=== PATIENT | male | born 1930 | race Caucasian/White ===

== ENCOUNTER → 2016-05-09 | Outpatient (CLI) | payer OTHER ==
[~2016-05-09] MED LIST: ACET-1138 PO; ASPEC81 PO; CLB200 PO; FINA5TAB PO; GLUC10007 PO; HYLANDS LEG CRAMP PO; MISCCAP80 PO; MULT-190 PO; MULTTAB5 PO; OMEG10007 PO; OMEP20TA PO; ONDA8TAB6 PO; OXYSR10 PO; PROP20TA67 PO; RSTOPS OP; RXC5 PO; SIMV80TA2 PO; TAMS0.4C59 PO; VALS40TA2 PO; ZOLP5TAB PO
[2016-05-09 10:25] LABS: BASO % 0.4 %; BASO ABS # 0.03 K/uL (0-0.2); COMPLETE YES; EOS % 3.9 %; HEMATOCRIT 41.3 % (42-52); IG% 0.1 %; LYMPH % 19.2 %; LYMPH ABS # 1.28 K/uL (1.2-3.4); MEAN CELL VOLUME 87.3 fL (80-100); MEAN CORPUSCULAR HGB CONC 34.4 g/dl (32-36); MEAN PLATELET VOLUME 11.3 fL (7.4-10.4); MONO % 8.8 %; NEUT % 67.6 %; PLATELET COUNT 197 K/uL (130-400); RED BLOOD COUNT 4.73 M/uL (4.7-6.1); WHITE BLOOD COUNT 6.68 K/uL (4.8-10.8)
[2016-05-09 10:33] LABS: ALT/SGPT 21 U/L (12-78); AMYLASE 42 U/L (25-115); BLOOD UREA NITROGEN 18 mg/dl (7-18); BUN/CREATININE RATIO 14.1 (10-20); CALCIUM 9.3 mg/dl (8.5-10.1); CARBON DIOXIDE 24 mmol/L (21-32); CHLORIDE 108 mmol/L (98-107); GLUCOSE 154 mg/dl (70-99); POTASSIUM 3.9 mmol/L (3.5-5.1); SODIUM 142 mmol/L (136-145)
[2016-05-09 10:35] LABS: ALB/GLOB RATIO 1.1 (0.9-2); ALKALINE PHOSPHATASE 84 U/L (45-117); AST/SGOT 14 U/L (15-37)
== END | disposition home or self-care (01) ==
LOC: C.LABSPEC 10:03
PROVIDERS: ATTEND Internal Medicine Critical Care Medicine
DX: R10.9 Unspecified abdominal pain (principal); D64.9 Anemia, unspecified

== ENCOUNTER → 2016-05-10 | Outpatient (CLI) | payer OTHER | END | disposition home or self-care (01) | LOC: C.LABVPSUW 08:33 | PROVIDERS: ATTEND Internal Medicine Critical Care Medicine | DX: R10.9 Unspecified abdominal pain (principal) ==

== ENCOUNTER → 2016-12-15 | Outpatient (CLI) | payer OTHER ==
[~2016-12-15] MED LIST changes: +ATROPINE SULFATE 0.1 MG/ML 5ML SYR ONE; +DOBUTamine HCL 12.5 MG/ML 20 ML VIAL ONE; +METOPROLOL TARTRATE 1 MG/ML VIAL ONE; -ONDA8TAB6 PO
--- NOTE | 2016-12-15 10:56 | DIAGNOSTIC IMAGING REPORT ---
CHEST 2 VIEWS ROUTINE CLINICAL HISTORY: CHEST PAIN pain COMPARISON STUDY: 08/05/2015 FINDINGS: The bones soft tissues and hemidiaphragms are normal. The cardiomediastinal silhouette is normal. The lungs are clear. The pulmonary vasculature is normal. IMPRESSION: Negative chest. The above report was generated using voice recognition software. It may contain grammatical, syntax or spelling errors. Electronically signed by: Tyson Escalona M.D. 12/15/2016 10:55 AM Dictated Date/Time: 12/15/2016 10:54 AM
--- NOTE | 2016-12-15 16:27 | DOBUTAMINE ECHO ---
*NOTICE TO RECEIVING [employer] This information is strictly Confidential and protected under [place] law. [place] law prohibits you from making any further disclosure of this information unless further disclosure is expressly permitted by the written consent of the person to whom it pertains or is authorized by law. A general authorization for the release of medical or other information is not sufficient for this purpose. Hospital accepts no responsibility if the information is made available to any other person, INCLUDING THE PATIENT. Interpretation Summary * Name: RADHA JEONG Study Date: 12/15/2016 11:36 AM BP: 133/97 mmHg * HR: 48 * : 1930 (M/d/yyyy) Gender: Male Height: 70 in * Age: 86 yrs Ethnicity: CA Weight: 185 lb * Ordering Physician: Bing Collins * Referring Physician: KIRK * Performed By: Joel Rivas RCS * * Reason For Study: ASCAD, Angina * BSA: 2.0 m2 * -- Conclusions -- * The left ventricle is borderline dilated. * Left ventricular systolic function is normal. * Grade I diastolic dysfunction, (abnormal relaxation pattern). * Mild to moderate aortic regurgitation. * Right ventricular systolic pressure is normal. * Borderline aortic root dilatation. * Normal dobutamine echocardiogram without evidence of inducible ischemia. Procedure Details * DOBUTAMINE ECHO, CPT#94632 * ECHO COLOR FLOW, CPT #[id number] * ECHO DOPPLER, CPT #[id number] Left Ventricular Findings with Stress * Normal dobutamine echocardiogram without evidence of inducible ischemia. Left Ventricle * The left ventricle is borderline dilated. * There is normal left ventricular wall thickness. * Ejection Fraction = 50-55%. * Left ventricular systolic function is normal. * Grade I diastolic dysfunction, (abnormal relaxation pattern). * The left ventricular wall motion is normal. Right Ventricle * The right ventricle is normal in size and function. Atria * The left atrial size is normal. * Right atrial size is normal. Mitral Valve * The mitral valve anatomy is normal. * Significant mitral regurgitation is absent. Tricuspid Valve * The tricuspid valve is not well visualized, but is grossly normal. * There is trace tricuspid regurgitation. * Right ventricular systolic pressure is normal. Aortic Valve * The aortic valve is trileaflet. * No hemodynamically significant valvular aortic stenosis. * Mild to moderate aortic regurgitation. Great Vessels * Borderline aortic root dilatation. Pericardium * There is no pericardial effusion. Stress Parameters * The baseline electrocardiogram was abnormal. It displayed right bundle branch block. * Stress ECG: No ST changes. No arrhythmias. * The stress portion of this study was personally supervised by the undersigned interpreting physician. * Rest heart rate was '48' BPM. * Rest blood pressure was '133/97' * Maximum heart rate achieved was 122 bpm. * Maximum heart rate was 89 % of maximum age-predicted heart rate. * Maximum blood pressure was '197/91' * Maximum Dobutamine infusion rate was '50' mcg/kg/min. * A total of 1 mg of intravenous Atropine was used to supplement Dobutamine for heart rate response. * Dobutamine infusion was terminated due to achieving target heart rate * The patient did not exhibit any symptoms during drug infusion. Left Ventricular Findings with Stress * No significant EKG changes with dobutamine Normal augmentation without inducible wall motion abnormalities at peak dobutamine infusion. No symptoms reported MMode 2D Measurements and Calculations IVSd 0.91 cm IVSs 1.2 cm LVIDd 5.1 cm LVIDs 3.7 cm LVPWd 10 cm LVPWs 1.4 cm IVS/LVPW 0.91 FS 26.6 % EDV(Teich) 121.2 ml ESV(Teich) 58.5 ml EF(Teich) 51.7 % EDV(cubed) 129.1 ml ESV(cubed) 51.1 ml EF(cubed) 60.4 % % IVS thick 35.2 % % LVPW thick 36.0 % LV mass(C)d 173.3 grams LV mass(C)dI 85.8 grams/m\S\2 LV mass(C)s 165.2 grams LV mass(C)sI 81.8 grams/m\S\2 CO(Teich) 2.8 l/min CI(Teich) 1.4 l/min/m\S\2 SV(Teich) 62.7 ml SI(Teich) 31.1 ml/m\S\2 CO(cubed) 3.4 l/min CI(cubed) 1.7 l/min/m\S\2 SV(cubed) 78.0 ml SI(cubed) 38.6 ml/m\S\2 Ao root diam 4.0 cm Ao root area 12.8 cm\S\2 ACS 1.8 cm LA dimension 3.6 cm asc Aorta Diam 4.0 cm LA/Ao 0.90 LVAd ap4 29.6 cm\S\2 LVLd ap4 8.2 cm EDV(MOD-sp4) 88.0 ml LVAs ap4 19.2 cm\S\2 LVLs ap4 7.1 cm ESV(MOD-sp4) 43.0 ml EF(MOD-sp4) 51.1 % LVAd ap2 29.9 cm\S\2 LVLd ap2 8.7 cm EDV(MOD-sp2) 88.0 ml LVAs ap2 16.2 cm\S\2 LVLs ap2 6.8 cm ESV(MOD-sp2) 33.0 ml EF(MOD-sp2) 62.5 % CO(MOD-sp4) 2.0 l/min CI(MOD-sp4) 0.98 l/min/m\S\2 SV(MOD-sp4) 45.0 ml SI(MOD-sp4) 22.3 ml/m\S\2 CO(MOD-sp2) 2.4 l/min CI(MOD-sp2) 1.2 l/min/m\S\2 SV(MOD-sp2) 55.0 ml SI(MOD-sp2) 27.2 ml/m\S\2 Doppler Measurements and Calculations MV E max david 36.5 cm/sec MV A max david 88.8 cm/sec MV E/A 0.41 Ao V2 max 110.2 cm/sec Ao max PG 4.9 mmHg Ao max PG (full) 3.4 mmHg AI max david 420.8 cm/sec AI max PG 70.8 mmHg AI dec slope 118.2 cm/sec\S\2 AI P1/2t 1043.0 msec LV V1 max PG 1.5 mmHg LV V1 max 60.9 cm/sec PA V2 max 103.7 cm/sec PA max PG 4.3 mmHg PI max david 212.8 cm/sec PI max PG 18.1 mmHg PI dec slope 142.8 cm/sec\S\2 PI P1/2t 436.6 msec TR max david 256.0 cm/sec
== END | disposition home or self-care (01) ==
LOC: C.CPL 10:27
PROVIDERS: ATTEND Internal Medicine Critical Care Medicine
DX: R07.9 Chest pain, unspecified (principal); I25.119 Atherosclerotic heart disease of native coronary artery with unspecified angina pectoris

== ENCOUNTER → 2017-12-07 | Outpatient (CLI) | payer OTHER ==
[~2017-12-07] MED LIST changes: -ASPEC81 PO; +ASPI-320 PO; -ATROPINE SULFATE 0.1 MG/ML 5ML SYR ONE; -DOBUTamine HCL 12.5 MG/ML 20 ML VIAL ONE; -METOPROLOL TARTRATE 1 MG/ML VIAL ONE
--- NOTE | 2017-12-07 12:10 | DIAGNOSTIC IMAGING REPORT ---
CHEST 2 VIEWS ROUTINE CLINICAL HISTORY: COUGH, NIGHT SWEATS COMPARISON STUDY: 12/15/2016 FINDINGS: The cardiac and mediastinal contours are normal. There is no evidence of focal pulmonary consolidation. There is no evidence of failure. No pleural effusions are visualized.[ Slight prominence of the basilar markings likely represents atelectasis/scarring. IMPRESSION: No active disease in the chest. Electronically signed by: Tucker Soto M.D. 12/07/2017 12:09 PM Dictated Date/Time: 12/07/2017 12:08 PM
== END | disposition home or self-care (01) ==
LOC: C.RAD 11:33
PROVIDERS: ATTEND Internal Medicine Critical Care Medicine
DX: R05 Cough (principal); R61 Generalized hyperhidrosis

== ENCOUNTER 2017-12-30 03:15 | Emergency (ER) | payer OTHER ==
[~2017-12-30] VITALS: Ht 177.8 cm; Wt 88.4 kg
[2017-12-30 03:15] VITALS: TEMP 36.5; Ht 177.8 cm; Wt 88.4 kg
[2017-12-30] MEDS ORDERED: ONDANSETRON INJ 2 MG/ML 2 ML VIAL ONE (03:42)
[2017-12-30 03:54] LABS: BASO % 0.5 %; BASO ABS # 0.03 K/uL (0-0.2); EOS % 5.7 %; EOS ABS # 0.33 K/uL (0-0.5); HEMATOCRIT 39.3 % (42-52); HEMOGLOBIN 13.1 g/dL (14.0-18.0); LYMPH % 36.3 %; LYMPH ABS # 2.12 K/uL (1.2-3.4); MEAN CELL VOLUME 90.8 fL (80-100); MEAN CORPUSCULAR HEMOGLOBIN 30.3 pg (25-34); MEAN CORPUSCULAR HGB CONC 33.3 g/dl (32-36); MEAN PLATELET VOLUME 11.4 fL (7.4-10.4); MONO % 11.8 %; MONO ABS # 0.69 K/uL (0.11-0.59); NEUT % 45.7 %; NEUT ABS # 2.67 K/uL (1.4-6.5); PLATELET COUNT 172 K/uL (130-400); RED CELL DISTRIBUTION WIDTH CV 13.7 % (11.5-14.5); RED CELL DISTRIBUTION WIDTH SD 45.3 fL (36.4-46.3); WHITE BLOOD COUNT 5.84 K/uL (4.8-10.8)
--- NOTE | 2017-12-30 04:00 | EMERGENCY ROOM VISIT NOTE ---
History Report prepared by Lesia: Chilo Pantoja Under the Supervision of: Dr. Yumi Jain D.O. First contact with patient: 03:20 Chief Complaint: DIZZY Stated Complaint: DIZZY Nursing Triage Summary: Pt arrived via [facility] from home where he lives with his . Per pt, he was reading in bed at midnight when he suddenly became dizzy with blurred vision. Pt states "I turned off the lights and went to bed, then at 0200 I woke up to go to the bathroom and was very unsteady." Pt reports he had dizziness, blurred vision, and was diaphoretic. EMS reports pt vomited on scene. Heart rate 46 for EMS. 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 Upon arrival pt CAOx4. Hard of hearing. 100cc yellow food particle emesis in emesis bag. Pt reporting severe nausea and dizziness. Denies CP or SOB. Sinus wing on monitor. History of Present Illness The patient is an 87 year old male who presents to the Emergency Room with complaints of sudden onset dizziness, lightheadedness, and nausea that began 3.5 hours prior to arrival. Per nursing staff the patient was sitting in bed reading a book when he suddenly became lightheaded and also noticed some " blurry vision." He went to sleep and then woke up again at 0200 to use the restroom. He was still dizzy when he woke up and had difficulty ambulating to the restroom. Upon EMS arrival the patient was diaphoretic and bradycardic. The patient did vomit after EMS arrived. The patient is still complaining of nausea at this time. He notes that he has a history of "silent CA" and denies any chest pain or shortness of breath at this time. He denies any diarrhea. 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 Source of History: patient Onset: 3.5 hours [employer] SAL[employer] REP Position: head Quality: other (Dizziness, lightheadedness) Timing: other (sudden onset 3.5 hours ago) Associated Symptoms: + nausea, + vomiting Review of Systems See HPI for pertinent positives & negatives. A total of 10 systems reviewed and were otherwise negative. Past Medical & Surgical Medical Problems: (1) Diverticulitis (2) Inguinal hernia with bowel obstruction (3) Right knee DJD Surgical Problems: (1) Hx of cataract surgery Family History No significant family history Social History Smoking Status: Never Smoker Drug Use: none Marital Status: Housing Status: lives with significant other Occupation Status: retired Current/Historical Medications Scheduled Aspirin (Aspirin Ec), 81 MG PO DAILY Celecoxib (CeleBREX), 200 MG PO DAILY Cyclosporine (Ophth) (Restasis), 1 DROPS OP BID Finasteride (Proscar), 5 MG PO QPM Fish Oil ([place]-3), 1,000 MG PO QAM Multiple Vitamins W/ Minerals (Centrum), 1 TAB PO QAM Ocuvite Preservision (Ocuvite Preservision), 1 TAB PO BID Omeprazole (Omeprazole), 20 MG PO BID Probiotic Product (Probiotic), 1 CAP PO QPM Propranolol (Inderal), 40 MG PO BID Simvastatin (Zocor), 80 MG PO HS Tamsulosin Hcl (Flomax), 0.4 MG PO DAILY Valsartan (Diovan), 40 MG PO QPM Allergies Coded Allergies: No Known Allergies (Unverified , 11/25/15) Physical Exam Vital Signs Date Time Temp Pulse Resp B/P (MAP) Pulse Ox O2 Delivery O2 Flow Rate FiO2 12/30/17 06:33 54 19 141/77 94 Room Air 12/30/17 05:35 50 15 137/63 95 Nasal Cannula 2.0 12/30/17 05:35 133/63 12/30/17 05:30 47 13 96 Nasal Cannula 2.0 12/30/17 05:00 45 14 96 Nasal Cannula 2.0 12/30/17 04:30 45 14 96 Nasal Cannula 2.0 12/30/17 04:05 45 14 144/71 97 Nasal Cannula 2.0 12/30/17 04:04 144/71 12/30/17 03:39 Nasal Cannula 2.0 12/30/17 03:39 97 Nasal Cannula 2.0 12/30/17 03:35 88 Room Air 12/30/17 03:30 49 14 95 12/30/17 03:29 46 12/30/17 03:15 36.5 46 13 155/81 93 Room Air Physical Exam HEENT: Head - normocephalic and atraumatic. Pupils are equal, round, and reactive to light. Extraocular Lateral nystagmus on exam. Ears - bilaterally patent canals with noninjected tympanic membranes and no evidence of hemotympanum. Nose - moist nasal mucosa without discharge. Mouth - moist buccal mucosa. Oropharynx is nonerythematous and there is no tonsillar exudate or edema noted. Neck: Supple; no JVD, nuchal rigidity, cervical lymphadenopathy, or auscultated bruits. Heart: Regular rate and rhythm. There is a normal S1 and S2 with no murmurs, clicks, or gallops appreciated. Lungs: Clear to auscultation bilaterally with no wheezes, rales, or rhonchi. Abdomen: Soft, completely nontender, nondistended, with good bowel sounds. There are no palpable pulsatile masses or hepatosplenomegaly. There is no guarding, rigidity, or rebound noted. Extremities: No evidence of cyanosis, clubbing, or edema. There are easily palpable peripheral pulses. Neuro:The patient is awake and alert, oriented to day, time, and place. Muscle strength is 5/5 in all 4 extremities. 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 There are no cerebellar signs. Medical Decision & Procedures ER Provider Diagnostic Interpretation: Radiology results as stated below per my review and the radiologist's interpretation: HEAD WITHOUT CONTRAST (CT) CLINICAL HISTORY: 87 years-old Male with severe dizziness and nausea. Acute severe dizziness and nausea TECHNIQUE: Multiple axial CT images of the head were obtained without contrast. A dose lowering technique was utilized adhering to the principles of ALARA. CT DOSE: 537.48 mGy.cm COMPARISON: CT sinus study 04/06/2010 FINDINGS: No acute intracranial hemorrhage, midline shift, intracranial mass, hydrocephalus, territorial ischemia or abnormal extra-axial collection. Age-related involutional changes. Ill-defined low-attenuation about the periventricular white matter suggests chronic microvascular ischemic changes. The calvarium is intact. Mastoid air cells are clear. Mild mucosal thickening of the ethmoid air cells. IMPRESSION: No acute intracranial abnormality. The above report was generated using voice recognition software. It may contain grammatical, syntax or spelling errors. Electronically signed by: Marek Pa M.D. 12/30/2017 6:04 AM Dictated Date/Time: 12/30/2017 6:02 AM Laboratory Results 12/30/17 03:08 Red Blood Count 4.33, Mean Corpuscular Volume 90.8, Mean Corpuscular Hemoglobin 30.3, Mean Corpuscular Hemoglobin Concent 33.3, Mean Platelet Volume 11.4, Neutrophils (%) (Auto) 45.7, Lymphocytes (%) (Auto) 36.3, Monocytes (%) (Auto) 11.8, Eosinophils (%) (Auto) 5.7, Basophils (%) (Auto) 0.5, Neutrophils # (Auto ) 2.67, Lymphocytes # (Auto) 2.12, Monocytes # (Auto) 0.69, Eosinophils # (Auto ) 0.33, Basophils # (Auto) 0.03 12/30/17 03:08 Test 12/30/17 03:08 12/30/17 06:00 White Blood Count 5.84 K/uL (4.8-10.8) Red Blood Count 4.33 M/uL (4.7-6.1) Hemoglobin 13.1 g/dL (14.0-18.0) Hematocrit 39.3 % (42-52) Mean Corpuscular Volume 90.8 fL (80-100) Mean Corpuscular Hemoglobin 30.3 pg (25-34) Mean Corpuscular Hemoglobin Concent 33.3 g/dl (32-36) Platelet Count 172 K/uL (130-400) Mean Platelet Volume 11.4 fL (7.4-10.4) Neutrophils (%) (Auto) 45.7 % Lymphocytes (%) (Auto) 36.3 % Monocytes (%) (Auto) 11.8 % Eosinophils (%) (Auto) 5.7 % Basophils (%) (Auto) 0.5 % Neutrophils # (Auto) 2.67 K/uL (1.4-6.5) Lymphocytes # (Auto) 2.12 K/uL (1.2-3.4) Monocytes # (Auto) 0.69 K/uL (0.11-0.59) Eosinophils # (Auto) 0.33 K/uL (0-0.5) Basophils # (Auto) 0.03 K/uL (0-0.2) RDW Standard Deviation 45.3 fL (36.4-46.3) RDW Coefficient of Variation 13.7 % (11.5-14.5) Immature Granulocyte % (Auto) 0.0 % Immature Granulocyte # (Auto) 0.00 K/uL (0.00-0.02) Anion Gap 8.0 mmol/L (3-11) Est Creatinine Clear Calc Drug Dose 42.6 ml/min Estimated GFR () 51.8 Estimated GFR (Non- 44.7 BUN/Creatinine Ratio 23.5 (10-20) Calcium Level 8.3 mg/dl (8.5-10.1) Total Bilirubin 0.4 mg/dl (0.2-1) Direct Bilirubin < 0.1 mg/dl (0-0.2) Aspartate Amino Transf (AST/SGOT) 18 U/L (15-37) Alanine Aminotransferase (ALT/SGPT) 27 U/L (12-78) Alkaline Phosphatase 75 U/L (45-117) Troponin I < 0.015 ng/ml (0-0.045) Total Protein 6.3 gm/dl (6.4-8.2) Albumin 3.4 gm/dl (3.4-5.0) Thyroid Stimulating Hormone (TSH) 3.450 uIu/ml (0.300-4.500) Urine Color YELLOW Urine Appearance CLEAR (CLEAR) Urine pH 5.0 (4.5-7.5) Urine Specific [place] 1.020 (1.000-1.030) Urine Protein NEG (NEG) Urine Glucose (UA) NEG (NEG) Urine Ketones TRACE (NEG) Urine Occult Blood NEG (NEG) Urine Nitrite NEG (NEG) Urine Bilirubin NEG (NEG) Urine Urobilinogen NEG (NEG) Urine Leukocyte Esterase NEG (NEG) Laboratory results per my review. Medications Administered Medications (Trade) Dose Ordered Sig/Ulises Route Start Time Stop Time Status Last Admin Dose Admin Ondansetron HCl (Zofran Inj) 4 mg STK-MED ONCE .ROUTE 12/30/17 03:42 12/30/17 03:43 DC 12/30/17 03:51 4 MG Sodium Chloride 500 ml @ 999 mls/hr Q31M STAT IV 12/30/17 05:04 12/30/17 05:34 DC 12/30/17 05:24 999 MLS/HR ECG Per My Interpretation Indication: bradycardia Rate (beats per minute): 47 Rhythm: sinus bradycardia Findings: RBBB, no acute ischemic change, no ectopy ED Course 0337: Past medical records reviewed. The patient was evaluated in room B2. A complete history and physical exam was performed. A 12-lead EKG was obtained as described above. Laboratory studies were drawn as above. 0342: Ordered Zofran 4 mg IV. The patient went for a CT scan of the brain as described above. 0504: Ordered Sodium Chloride 500 mL @ 999 mL/hr IV. 0516: I checked on the patient, He is feeling much better. 0556: The patient is drinking apple juice, we will ambulatory trial the patient. 0610: Upon reevaluation, The patient is feeling much better. I discussed findings and results with him. He verbalized agreement of the treatment plan. The patient was discharged home. Medical Decision The patient is a 87 year old male who presents to the Emergency Department with for dizziness, nausea, and vomiting. Differential diagnosis includes posterior circulations stroke, dehydration, vertigo, and cardiac dysrhythmia. Laboratory results were reviewed and show: normal TSH, normal LFTs, glucose of 109, BUN of 33, creatinine of 1.4, no leukocytosis, mild anemia, hemoglobin of 13.1, and mild anemia. This is an 87-year-old male patient who presents to the emergency department with a sudden onset of dizziness and nausea. The patient eventually had an episode of vomiting. He notes that his symptoms seems to worsen with any type of movement. Laboratory studies revealed some dehydration. His physical exam is consistent with vertigo. However, we did discuss the possibility of a posterior circulation stroke as the cause of his symptoms. His symptoms are currently resolving. Therefore I did not think that this met stroke criteria. Medication Reconcilliation Current Medication List: was personally reviewed by me Blood Pressure Screening Patient's blood pressure: Elevated blood pressure Blood pressure disposition: Elevated BP felt to be situational Impression Primary Impression: Dizziness Additional Impression: Dehydration Scribe Attestation The scribe's documentation has been prepared under my direction and personally reviewed by me in its entirety. I confirm that the note above accurately reflects all work, treatment, procedures, and medical decision making performed by me. Departure Information Dispostion Being Evaluated By Hospitalist Barney Stovall M.D. (PCP) Forms HOME CARE DOCUMENTATION FORM, IMPORTANT VISIT INFORMATION Patient Instructions My [facility] Additional Instructions Rest take plenty of clear liquids If the dizziness worsens again, rturn to the ER for further testing including an MRI Follow up with your PCP tomorrow if symproms persist. Problem Qualifiers
[2017-12-30 04:12] LABS: ALBUMIN 3.4 gm/dl (3.4-5.0); ALKALINE PHOSPHATASE 75 U/L (45-117); ALT/SGPT 27 U/L (12-78); AST/SGOT 18 U/L (15-37); BLOOD UREA NITROGEN 33 mg/dl (7-18); CALCIUM 8.3 mg/dl (8.5-10.1); CARBON DIOXIDE 23 mmol/L (21-32); CREATININE 1.42 mg/dl (0.60-1.40); GLUCOSE 109 mg/dl (70-99); SODIUM 140 mmol/L (136-145); TOTAL PROTEIN 6.3 gm/dl (6.4-8.2)
[2017-12-30] MEDS ORDERED: SODIUM CHLORIDE 0.9% 500ML 500 ML IV STA (05:04)
--- NOTE | 2017-12-30 06:06 | DIAGNOSTIC IMAGING REPORT ---
HEAD WITHOUT CONTRAST (CT) CLINICAL HISTORY: 87 years-old Male with severe dizziness and nausea. Acute severe dizziness and nausea TECHNIQUE: Multiple axial CT images of the head were obtained without contrast. A dose lowering technique was utilized adhering to the principles of ALARA. CT DOSE: 537.48 mGy.cm COMPARISON: CT sinus study 04/06/2010 FINDINGS: No acute intracranial hemorrhage, midline shift, intracranial mass, hydrocephalus, territorial ischemia or abnormal extra-axial collection. Age-related involutional changes. Ill-defined low-attenuation about the periventricular white matter suggests chronic microvascular ischemic changes. The calvarium is intact. Mastoid air cells are clear. Mild mucosal thickening of the ethmoid air cells. IMPRESSION: No acute intracranial abnormality. The above report was generated using voice recognition software. It may contain grammatical, syntax or spelling errors. Electronically signed by: aMrek Pa M.D. 12/30/2017 6:04 AM Dictated Date/Time: 12/30/2017 6:02 AM
[2017-12-30] MEDS ORDERED: CYCL0.052 OP (06:47)
[2017-12-30] MEDS ORDERED: TAMS0.4C38 PO (06:48)
[2017-12-30] MEDS ORDERED: CLB/200 PO (06:49)
[2017-12-30] MEDS ORDERED: ASPI81TA28 PO (06:49)
[2017-12-30 07:49] VITALS: BP 129/72; PULSE 51; O2SAT 94
== END 2017-12-30 07:50 | disposition home or self-care (01) ==
LOC: EDBD 03:15 → C.EDB 03:16
DX: R42 Dizziness and giddiness (principal); E86.0 Dehydration; K57.92 Diverticulitis of intestine, part unspecified, without perforation or abscess without bleeding; M17.11 Unilateral primary osteoarthritis, right knee; Z79.82 Long term (current) use of aspirin; Z79.899 Other long term (current) drug therapy

== ENCOUNTER 2021-11-24 07:24 | Observation (INO) ==
[2021-11-24] MEDS ORDERED: LIDOCAINE 2% MPF LOCAL 5 ML VIAL INFIL ONE (08:12)
[2021-11-24] MEDS ORDERED: PROPOFOL IV EMULSION 10 MG/ML 20 ML VIAL IV ONE (08:12)
[2021-11-24] MEDS ORDERED: ROCURONIUM BROMIDE 10 MG/ML 5 ML VIAL IV ONE (08:12)
[2021-11-24] MEDS ORDERED: fentaNYL citrate 100 MCG/2 ML VIAL ONE ×2 (08:13→10:51)
[2021-11-24] MEDS ORDERED: MIDAZOLAM HCL 1 MG/ML 2ML VIAL ONE (08:13)
[2021-11-24] MEDS ORDERED: LIDOCAINE 1%/EPINEPHRINE 1:100,000 50 ML VIAL ONE (08:37)
--- NOTE | 2021-11-24 08:44 | History & Physical Bridge Note ---
Date of Service November 24, 2021 History & Physical Bridge Note I have examined the patient, reviewed the History & Physical and in the interval since the performance of the History & Physical I have noted the following changes of clinical significance: no changes noted no problems since seen yesterday ruq minimal guarding all question answered
--- NOTE | 2021-11-24 08:47 | Anesthesiology Consultation ---
Date of Service November 24, 2021 Assessment & Plan Chart Review Chart Review: Acceptable Risk for Surgery and Patient NOT seen in Pre Admission Testing Consults Requested none ASA ASA3 Proposed Anesthesia Anesthesia Type: General Risk / Benefits Reviewed With: PT / POA / Parent / Guardian, Accepts Plan and Informed Consent Obtained Additional Comments: covid test neg. History Surgery Operation Date: 11/24/21 09:05 Proposed Procedures p Laparoscopic Cholecystectomy with Cholangiogram, Possible Open - Chris Leal MD, FACS Height/Weight Height: 5 ft 10 in Weight: 84.113 kg Allergies Allergy/AdvReac Type Severity Reaction Status Date / Time No Known Drug Allergies Allergy Unknown nkda Verified 11/24/21 07:58 Medications Home Medications Medication Instructions Recorded Confirmed Last Taken multivitamin-ferrous 1 tab PO QAM 11/20/19 11/24/21 11/24/21 06:45 fumarate-folic acid 18 mg-400 mcg tablet (Centrum Complete) propranolol 40 mg tablet 40 mg PO BID 11/20/19 11/24/21 11/24/21 06:45 vitamins A,C,A-qjxg-zelswr 2,148 1 tab PO BID 11/20/19 11/24/21 11/17/21 09:00 mcg-113 mg-45 mg-17.4 mg tablet (PreserVision AREDS) finasteride 5 mg tablet (Proscar) 5 mg PO QPM 08/13/20 11/24/21 11/23/21 21:00 omeprazole 20 mg tablet,delayed 20 mg PO BID 08/13/20 11/24/21 11/24/21 06:45 release tamsulosin 0.4 mg capsule (Flomax) 0.4 mg PO QPM 08/13/20 11/24/21 11/23/21 21:00 zolpidem 5 mg tablet (Ambien) 5 mg PO HS PRN Sleep 08/13/20 11/24/21 11/23/21 21:00 Hylands Leg Cramps 2 tab PO DAILY 11/14/21 11/24/21 11/23/21 21:00 awusfbx-[id number]-vlfcgghb 250 1 tab PO Q6H PRN Pain 11/14/21 11/24/21 11/22/21 21:00 mg-250 mg-65 mg tablet (Excedrin Extra Strength) doxepin 6 mg tablet 6 mg PO HS 11/14/21 11/24/21 11/22/21 21:00 rosuvastatin 5 mg tablet 5 mg PO DAILY 11/14/21 11/24/21 11/23/21 21:00 NPO Date Last Intake of Fluids: 11/23/21 Time Last Intake of Fluids: 22:00 Date Last Intake of Solids: 11/23/21 Time Last Intake of Solids: 18:00 Past Medical History Medical History Hearing deficit Helicobacter pylori (H. 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 per cardio Hyperlipidemia Hypertension Macular degeneration of both eyes Nocturia Exercise / Class Metabolic Activity II 4-5 Yardwork/Stairs/Walk up hill Past Family History Family History Father Diabetes Cardiac disorder Nephrolithiasis Mother Cardiac disorder Nephrolithiasis Other Hearing loss Hypertension No family history of adverse response to anesthesia Past Surgical History Surgical History History of bilateral cataract extraction History of bilateral inguinal hernia repair History of colonoscopy History of esophagogastroduodenoscopy (EGD) History of hand surgery left History of hernia repair right side History of knee replacement right History of rotator cuff surgery bilateral History of sinus surgery History of surgery fingers closed reduction History of tonsillectomy and adenoidectomy History of tooth extraction Past Anesthesia History No Hx of Anesthesia Complications and No Family Hx of Anesthesia Complications History of PONV No Hx of PONV and No Hx of Motion Sickness Social History Smoking Status: Never smoker Do You Dip or Chew Tobacco: No Hx Alcohol Use: Yes Alcohol type: beer, wine and hard liquor alcohol intake frequency: 0-2 drinks per day Hx Substance Use: No substance use type: does not use Physical Exam Vital Signs Last Vital Signs Temp 36.7 C 11/24/21 08:04 Pulse 57 L 11/24/21 08:04 Resp 18 11/24/21 08:04 BP 140/81 11/24/21 08:04 Pulse Ox 93 11/24/21 08:04 O2 Del Method 11/24/21 08:04 Constitutional not cachectic ENMT Mouth: no dentition abnormality Thyromental Distance: > or= 3.5 Finger Breadths Mallampati Class: II Neck normal visual inspection and trachea midline; neck extension not limited Respiratory normal respiratory effort Auscultation: lungs clear to auscultation bilaterally Cardiovascular Rate/Rhythm: regular rate and regular rhythm Heart Sounds: no murmur Vessels: no carotid bruit Musculoskeletal Spine: normal cervical ROM and no pain with cervical ROM Extremities: full ROM of extremities Neurologic moves all extremities Motor/Sensory: no sensory deficit Psychiatric Orientation: alert and oriented x 3 Testing Electrocardiogram Date: 11/14/21 Findings: + poor R wave progression and + SB @ (at 56) Chest X-Ray Date: 11/14/21 Findings: + NAD
[2021-11-24] MEDS ORDERED: OPTIRAY 300 IV ONE (09:18)
[2021-11-24] MEDS ORDERED: VASOPRESSIN 20 UNIT/ML VIAL ONE (09:19)
[2021-11-24] MEDS ORDERED: ONDANSETRON INJ 2 MG/ML 2 ML VIAL ONE (09:31)
[2021-11-24] MEDS ORDERED: DEXAMETHASONE SOD INJ 4 MG/ML VIAL ONE (09:31)
[2021-11-24] MEDS ORDERED: GLUCAGON FOR INJ 1 MG VIAL ONE (09:34)
[2021-11-24] MEDS ORDERED: GLUCAGON 1 MG in SYRINGE 0 ML IV ONE (09:36)
[2021-11-24] MEDS ORDERED: SURGICEL ABSORB HEMOSTAT 2IN X 14IN TOP ONE (09:52)
[2021-11-24] MEDS ORDERED: GLYCOPYRROLATE 0.2 MG/ML VIAL ONE ×2 (09:53→09:57)
[2021-11-24] MEDS ORDERED: NEOSTIGMINE METHYLSULFATE 1 MG/ML 10ML VIAL ONE (09:53)
--- NOTE | 2021-11-24 10:15 | Post Operative Brief Note ---
PG Immediate Post Op with CF Date of Surgery November 24, 2021 Pre & Post Diagnosis Operation Date: 11/24/21 09:05 Pre-Op Diagnosis: Cholecystitis Post-Op Diagnosis: Cholecystitis I identified the patient and participated in the time-out.: Yes Procedure Operation Date: 11/24/21 09:05 Actual Procedures p Laparoscopic Cholecystectomy with Cholangiogram(Not Applicable) - Chris Leal MD, FACS Surgeon Chris Leal MD, FACS Road Gang Supervisor michael chatman Estimated Blood Loss 30 Findings Consistent with Post-Op Diagnosis Specimens Specimen Description: for pathology A. gallbladder for microbiology 1. contents of gallbladder for cultures Drains Adriana Drain (19f adriana drain)
--- NOTE | 2021-11-24 10:15 | Post Operative Brief Note ---
PG Immediate Post Op with CF Date of Surgery November 24, 2021 Pre & Post Diagnosis Operation Date: 11/24/21 09:05 Pre-Op Diagnosis: Cholecystitis Post-Op Diagnosis: Cholecystitis I identified the patient and participated in the time-out.: Yes Procedure Operation Date: 11/24/21 09:05 Actual Procedures p Laparoscopic Cholecystectomy with Cholangiogram(Not Applicable) - Chris Leal MD, FACS Surgeon Chris Leal MD, FACS Shiatsu Therapist michael chatman Estimated Blood Loss 30 Findings Consistent with Post-Op Diagnosis Specimens Specimen Description: for pathology A. gallbladder for microbiology 1. contents of gallbladder for cultures Drains Adriana Drain (19f adriana drain)
[2021-11-24] MEDS ORDERED: ONDANSETRON INJ 2 MG/ML 2 ML VIAL IV PRN ×3 (10:23→12:09)
[2021-11-24] MEDS ORDERED: oxyCODONE/ACETAMINOPHEN 5mg/325mg TAB PO PRN ×2 (10:23)
[2021-11-24] MEDS ORDERED: MoRPHine SULFATE 4 MG/ML 1 ML CARP\\VIAL IV PRN ×2 (10:23→12:09)
[2021-11-24] MEDS ORDERED: MoRPHine SULFATE 2 MG/ML CARP IV PRN ×2 (10:23→12:09)
--- NOTE | 2021-11-24 10:26 | Operative Report ---
PG Post Operative Report Pre & Post Diagnosis Operation Date: 11/24/21 09:05 Pre-Op Diagnosis: Cholecystitis Post-Op Diagnosis: Cholecystitis I identified the patient and participated in the time-out.: Yes Procedure Operation Date: 11/24/21 09:05 Actual Procedures p Laparoscopic Cholecystectomy with Cholangiogram(Not Applicable) - Chris Leal MD, FACS Patient was brought into the operating theater supine position general endotracheal anesthesia systemic antibiotics on board the abdomen was prepped byline solution properly draped timeout was had patient identified this point we use 0.5% Marcaine to infiltrate subcutaneously above the umbilical area incision was made sufficient to accommodate a Veress needle followed by 5 mm trocar point of entry inspected no injury identified on direct visualization we can see the right upper quadrant the omentum was wrapped around the gallbladder who can see the tip of the gallbladder coming above the liver and liver appeared to be fatty infiltration but no cirrhosis on direct visualization we placed 5 mm epigastric to 5 mm subcostal ports placed the patient in reverse Trendelenburg position with This intra-abdominal pressure between 10 and was 15 this point we are able to elevate the gallbladder and bluntly took down most of these chronic adhesions to the gallbladder the gallbladder itself was thick-walled. We worked our way down towards the neck of the gallbladder the patient 1 time became hypotensive for about 10 minutes responded to fluid shutting off intra-abdominal pressure an d some vasopressors as pressures were 60-90 but he responded pretty quickly at this point we resumed her surgery dissect out the neck of the gallbladder we could identify what appeared to be a thick structure coming off the gallbladder initially I thought it may been the common bile duct coming up high therefore we dissected more out circumferentially get around it and there was a thickened cystic duct coming off the gallbladder area we identified the cystic artery clipped it but did not divided at this point we placed a clip in the takeoff of the cystic duct from the gallbladder a small opening in cystic duct was made #4 urethral catheter transversing abdominal wall position cystic duct x-rays were taken initially no flow into the duodenum look like he had a meniscus is a distal common bile duct we flushed it and gave 1 mg of glucagon flush that again took another image and it opened up and we can see it going into the common bile duct and no further meniscus was seen the Cholangiocath was removed cystic duct was doubly clipped and divided at this point we clipped the artery again and divided it most of the adhesions were chronic inflamed that we took by sharp dissection we elevated the gallbladder from the liver a few areas we was hard to identify the posterior plane we did get into the liver some oozing was appreciated a small opening in the gallbladder was made we can see some greenish gravel sludge coming out we control that opening with a couple clips then continued or dissection to free the gallbladder completely from the liver placed in an Endopouch and took it out intact through the epigastric port cultures were taken. At this point we spent some time with hemostasis making sure that the gallbladder fossa was hemostatic we did put 2 pieces of Surgicel in the area and when we are done I felt it was satisfactory hemostasis I did drain the area with a 19 round Jagjit drain subhepatic leak taken out to the right upper quadrant trocar site prior to put the drainage and we put the camera right upper quadrant and visualize the initial entry into the umbilical area no injuries identified no adhesions the Jagjit drain was taken out right upper quadrant port stitched to the skin with 2-0 silk then placed subhepatic leg. Subcostal and epigastric trocar was then removed last umbilical trocar wounds were closed with 4-0 Monocryl 0 Vicryl was used subcutaneously epigastric area the procedure was tolerated well by the patient other than the hypotension that responded to fluid and vasopressors Estimated blood loss 30 cc Addendum Michael chatman was present throughout the procedure and helped the retraction exposure and wound closure Surgeon Chris Leal MD, FACS Registered Representative michael chatman Estimated Blood Loss 30 Findings Consistent with Post-Op Diagnosis Chronic cholecystitis cholelithiasis Specimens Gallbladder and contents Drains 19 Jagjit subhepatic leak taken out the right upper trocar site Indications Right upper quadrant pain acute exacerbation approximately 2 weeks ago seen in the emergency room Description of Procedure merda I attest to the content of the Intraoperative Record and any orders documented therein. Any exceptions are noted below.
[2021-11-24] MEDS ORDERED: SODIUM CHLORIDE 0.9% 1000ML 1,000 ML IV SCH (10:30)
[2021-11-24] MEDS ORDERED: FLUMAZENIL 0.1 MG/1 ML 10 ML VIAL IV PRN (10:49)
[2021-11-24] MEDS ORDERED: ATROPINE SULFATE 0.1 MG/ML 10ML SYR IV PRN (10:49)
[2021-11-24] MEDS ORDERED: NALOXONE HCL 0.4 MG/1 ML VIAL/CARP IV PRN (10:49)
[2021-11-24] MEDS ORDERED: ePHEDrine sulfate 50 MG/ML AMP IV PRN (10:49)
[2021-11-24] MEDS ORDERED: PROMETHAZINE HCL 12.5 MG in SODIUM CHLORIDE 0.9% 50 ML IV PRN (10:49)
[2021-11-24] MEDS: fentaNYL citrate 100 MCG/2 ML VIAL IV PRN ×3 (10:52→11:04)
--- NOTE | 2021-11-24 11:44 | Fluoroscopy Report ---
INTRAOPERATIVE RADIOGRAPHS CLINICAL HISTORY: Intraoperative cholangiogram. Fluoroscopy time: 6 seconds. FINDINGS: 7 spot fluoroscopic views of the right upper quadrant from an intraoperative radiographs ar e correlated with abdominal ultrasound dated 11/14/2021. The gallbladder surgically absent. There is s mooth contrast opacification of the common bile duct. A filling defect within the distal common duct on the initial images may represent choledocholithiasis. This was not seen on the final images and th ere was subsequent smooth passage of contrast into the duodenum. IMPRESSION: Intraoperative cholangiogram images as above. See operative report for detailed findings. Electronically signed by: Ady Sahu M.D. 11/24/2021 11:43 AM
--- NOTE | 2021-11-24 12:22 | Anesthesiology Progress Note ---
Date of Service November 24, 2021 Anesthesia Post Procedure Vital Signs Vital Signs: Temp Pulse Pulse Resp BP Pulse Ox O2 Del Method 11/24/21 11:50 54 L 21 110/57 L 94 Nasal Cannula 11/24/21 11:40 55 L 16 124/60 95 Nasal Cannula 11/24/21 11:30 47 L 20 104/52 L 96 Nasal Cannula 11/24/21 11:20 36.3 C L 45 L 20 108/55 L 97 Nasal Cannula 11/24/21 11:10 45 L 14 101/54 L 97 Nasal Cannula 11/24/21 10:50 42 L 18 112/55 L 97 Oxymask 11/24/21 10:40 49 L 18 115/64 97 Oxymask 11/24/21 11:00 50 L 18 108/56 L 94 Nasal Cannula 11/24/21 10:31 36.5 C 55 L 20 116/69 93 Oxymask 11/24/21 08:04 36.7 C 57 L 18 140/81 93 Room Air O2 Flow Rate 11/24/21 11:50 2 11/24/21 11:40 2 11/24/21 11:30 2 11/24/21 11:20 3 11/24/21 11:10 4 11/24/21 10:50 10 11/24/21 10:40 10 11/24/21 11:00 4 11/24/21 10:31 10 11/24/21 08:04 Pain Intensity Abdomen: Pain Intensity: 4 Transfer of Care Handoff Completed per policy Notes Mental Status: alert / awake / arousable Patient Amnestic to Procedure: Yes Nausea / Vomiting: adequately controlled Pain: adequately controlled Airway Patency, RR, SpO2: stable & adequate BP & HR: stable & adequate Hydration State: stable & adequate Anesthetic Complications: no major complications apparent
[2021-11-24] MEDS: LACTATED RINGER'S 1,000 ML IV SCH ×2 (12:25→22:07)
[2021-11-24] MEDS ORDERED: HYDROmorphone INJ 0.5 MG/0.5 ML SYR IV PRN (13:10)
[2021-11-24] MEDS: oxyCODONE/ACETAMINOPHEN 5mg/325mg TAB PO PRN (13:54)
[2021-11-24] MEDS: HYDROmorphone INJ 1 MG/ML SYRINGE IV PRN ×2 (16:59→20:13)
[2021-11-24] MEDS: FINASTERIDE 5 MG TAB PO SCH (20:27)
[2021-11-24] MEDS: TAMSULOSIN HCL 0.4 MG CAP PO SCH (20:27)
[2021-11-24] MEDS: PANTOprazole 40 MG TAB PO SCH (20:27)
[2021-11-24] MEDS: PROPRANOLOL HCL 20 MG TAB PO SCH (20:27)
[2021-11-24] MEDS: SODIUM CHLORIDE 0.65% NA SOLN 45 ML (OCEAN) NAE SCH (22:08)
[2021-11-25] MEDS: oxyCODONE/ACETAMINOPHEN 5mg/325mg TAB PO PRN ×3 (00:53→18:42)
[2021-11-25 06:23] LABS: Basophils # (auto) 0.01 K/uL (0-0.2); Basophils % (auto) 0.1 %; Eosinophils # (auto) 0.01 K/uL (0-0.50); Eosinophils % (auto) 0.1 %; Hematocrit (blood only) 39.4 % (40.1-51.0); Hemoglobin 12.7 g/dl (14.0-18.0); Immature Granulocytes # (auto) 0.05 K/uL (0.00-0.02); Immature Granulocytes % (auto) 0.4 %; Lymphocytes # (auto) 1.28 K/uL (1.2-3.4); Lymphocytes % (auto) 9.6 %; Mean Corpuscular Hemoglobin 29.8 pg (25.0-34.0); Mean Corpuscular Hgb Conc 32.2 g/dL (32.0-36.0); Mean Corpuscular Volume 92.5 fL (80.0-100.0); Monocytes # (auto) 1.12 K/uL (0.24-0.82); Monocytes % (auto) 8.4 %; Neutrophils # (auto) 10.83 K/uL (1.4-6.5); Neutrophils % (auto) 81.4 %; Platelet Count 226 K/uL (130-400); RDW Coefficient of Variation 13.4 % (11.5-14.5); RDW Standard Deviation 45.9 fL (36.4-46.3); Red Blood Count 4.26 M/uL (4.63-6.08)
[2021-11-25 06:56] LABS: Albumin Level 3.6 gm/dl (3.4-5.0); BUN Creatinine Ratio 18.4 (10-20); Bilirubin Direct 0.2 mg/dl (0-0.2); Calcium 8.9 mg/dl (8.5-10.1); Est GFR (African American) 53.1 ml/min; Est GFR (Non-African American) 45.8 ml/min; Potassium 4.9 mmol/L (3.5-5.1); Total Protein 6.4 gm/dl (6.0-8.3)
--- NOTE | 2021-11-25 07:53 | Surgery Progress Note ---
Date of Service November 25, 2021 Assessment & Plan (1) Epigastric abdominal pain: Plan: Part of the pain related to the upper abdomen and lower chest area on the right is related to the surgery (2) Chest pain: Plan: The chest pain is atypical for cardiac in origin but we will obtain an EKG and have medical service see the patient The neck pain and upper right chest area most likely related to some residual pneumoperitoneum from the insufflation during the surgery Plan At this point we will have the medical service see the patient obtain an EKG stop IV fluids increase diet he has had urinary issues in the past we will make sure before discharge that he is voiding fine otherwise he may need a catheter which the patient does not want Lab noted liver enzymes normal white count elevation noted The patient had preoperative antibiotics 2 g of Mefoxin we did not continue postop at this point with the elevated white count the urinary symptoms we will empirically place him on antibiotics we will continue as an outpatient Admission and Anticipated Discharge Date Admission Date: November 24, 2021 Subjective Patient stated did not have a good night he took some liquids it was too salty is complaining of pain lower chest going up to the neck area denies any shortness of breath he needed to have a straight cath last night Physical Exam Physical Exam: Alert coherent laying in bed still complaining of some pain atypical chest and neck pain posteriorly The abdomen is benign Jagjit drainage serosanguineous very little bilious stain Trocar sites are healing well the abdomen is completely benign Results & Data ([facility]) Vital Signs (Past 12 Hours) Vital Signs Temp Pulse Resp BP Pulse Ox O2 Del Method O2 Flow Rate 11/25/21 07:08 36.9 C 62 17 160/87 H 94 Nasal Cannula 2.5 11/25/21 03:12 36.8 C 58 L 18 156/80 H 95 Nasal Cannula 11/24/21 20:22 36.4 C L 62 14 115/79 94 Nasal Cannula 3 11/24/21 19:54 36.8 C 70 18 169/97 H 96 PG Care Time/CCT Total # of Minutes Spent Total Time Spent with Patient: Total time spent is greater than 50% in coordination of care (as documented) at patient's floor/unit and/or counseling patient: Coding Level of Care Code None Diagnoses Epigastric abdominal pain R10.13 Chest pain R07.9 Chest pain type: unspecified (1) Chest pain Chest pain type: unspecified Qualified Code(s): R07.9 - Chest pain, unspecified
[2021-11-25] MEDS: AMOXICILLIN/CLAVULANATE 875 MG TAB PO SCH ×2 (08:57→17:27)
[2021-11-25] MEDS: SODIUM CHLORIDE 0.65% NA SOLN 45 ML (OCEAN) NAE SCH ×2 (08:58→21:24)
[2021-11-25] MEDS: PANTOprazole 40 MG TAB PO SCH ×2 (08:58→21:22)
[2021-11-25] MEDS: PROPRANOLOL HCL 20 MG TAB PO SCH ×2 (08:59→21:21)
[2021-11-25] MEDS ORDERED: ROSUVASTATIN CALCIUM 5 MG TAB PO SCH (09:00)
[2021-11-25] MEDS ORDERED: LACTATED RINGER'S 1,000 ML IV SCH (09:00)
--- NOTE | 2021-11-25 09:07 | Consultation ---
Date of Consultation November 25, 2021 Assessment & Plan (1) Right-sided chest pain: Given his hypoxia, right-sided upper chest pain, right shoulder pain, etc I believe we should rule out VTE. Thus, will obtain CTA Chest PE protocol this am. If no PE is found the hypoxia may simply be from atelectasis. I have a low suspicion for ACS - he has not had central/substernal or left-sided chest symptoms at any point. However, will check a HS-troponin now. If work-up is completely negative for cardiopulmonary disease his right-sided pains may simply be from diaphragmatic irritation from insufflation during his surgery. (2) Right shoulder pain: Again could be due to diaphragmatic irritation from insufflation during his gall bladder surgery if CTA chest is negative. (3) Chronic cholecystitis: POD #1 s/p lap daphnie by Dr Leal. Defer management to Dr Leal. (4) Hypoxia: Post-op pulmonary insufficiency. See #1 above. Continue incentive spirometry, NC O2, etc. (5) BPH without obstruction/lower urinary tract symptoms: Continue flomax and finasteride. (6) Hypertension: Continue inderal. BPs mildly elevated this am but would simply trend for now rather than increasing meds. BP elevation may be due to pain. (7) Hyperlipidemia: Would hold statin in light of #8 below. (8) Transaminitis: This will need to be trended. At minimum this is from liver irritation in the setting of his surgery yesterday. If bilirubin and alk phos rise in concert with the ast/alt need to then work him up for biliary obstruction. Plan for repeat LFTs in am at minimum. Plan Thank you for this consult - I will follow with you. History of Present Illness Requesting Physician: Chris Leal MD Reason for Consultation: post-operative right upper chest pain, shoulder pain Attending Physician: Chris Leal MD, FACS History of Present Illness Pleasant 89yo male - POD #1 from laparoscopic cholecystectomy for chronic cholecystitis - along with BPH/GERD/Hyperlipidemia. We were asked to see Mr Claire due to the development of right upper chest pain, right shoulder pain, and right posterior neck pain. Patient states these symptoms started while in the PACU following his surgery. They gradually worsened yesterday and overnight. The pain was initially over the right upper chest near the clavicle, then settled in the right shoulder and right scapular region. He had previous right shoulder surgery several decades ago and the pain in the right shoulder reminded him of that surgery. The pain is not pleuritic. He denies substernal/central chest pain or left-sided chest pain. Denies pain in the arms, jaw, or anterior neck. The pain has gradually subsided this AM prior to my assessment and is now mainly in the posterior neck. He c/o mild frontal headache as well. The patient also reports that sometime yesterday he was told his O2 sats were in the low 80s in room air and 2 L NC O2 was applied. During my assessment I removed the O2, and within 2 minutes his O2 sats were ranging 85-90% in room air. He does state that it is hard to take any deep breaths because of RUQ pain from his surgery. Use of the incentive spirometry has been challenging. Allergies Allergy/AdvReac Type Severity Reaction Status Date / Time No Known Drug Allergies Allergy Unknown nkda Verified 11/24/21 07:58 Home Medications Medication Instructions Recorded Confirmed Type multivitamin-ferrous 1 tab PO QAM 11/20/19 11/24/21 History fumarate-folic acid 18 mg-400 mcg tablet (Centrum Complete) propranolol 40 mg tablet 40 mg PO BID 11/20/19 11/24/21 History vitamins A,C,F-cbjo-dwpoud 2,148 1 tab PO BID 11/20/19 11/24/21 History mcg-113 mg-45 mg-17.4 mg tablet (PreserVision AREDS) finasteride 5 mg tablet (Proscar) 5 mg PO QPM 08/13/20 11/24/21 History omeprazole 20 mg tablet,delayed 20 mg PO BID 08/13/20 11/24/21 History release tamsulosin 0.4 mg capsule (Flomax) 0.4 mg PO QPM 08/13/20 11/24/21 History zolpidem 5 mg tablet (Ambien) 5 mg PO HS PRN Sleep 08/13/20 11/24/21 History Hylands Leg Cramps 2 tab PO DAILY 11/14/21 11/24/21 History iksbgvq-ptqwgpusiemla-nqbqkksl 250 1 tab PO Q6H PRN Pain 11/14/21 11/24/21 History mg-250 mg-65 mg tablet (Excedrin Extra Strength) doxepin 6 mg tablet 6 mg PO HS 11/14/21 11/24/21 History rosuvastatin 5 mg tablet 5 mg PO DAILY 11/14/21 11/24/21 History amoxicillin 875 mg-potassium 1 tab PO BID #10 tabs 11/25/21 Rx clavulanate 125 mg tablet oxycodone-acetaminophen 5 mg-325 1 - 2 tab PO .q4-6h PRN pain, for 11/25/21 Rx mg tablet (Percocet) initial therapy, max 6 tabs per day #12 tabs Patient History Medical History (Updated 11/25/21 @ 09:14 by Daniel Grier) Hearing deficit Helicobacter pylori (H. 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 cited on or before 2009 per cardio Hyperlipidemia Hypertension Macular degeneration of both eyes Nocturia Surgical History History of bilateral cataract extraction History of bilateral inguinal hernia repair History of colonoscopy History of esophagogastroduodenoscopy (EGD) History of hand surgery left History of hernia repair right side History of knee replacement right History of rotator cuff surgery bilateral History of sinus surgery History of surgery fingers closed reduction History of tonsillectomy and adenoidectomy History of tooth extraction Hx laparoscopic cholecystectomy (11/24/21) Laparoscopic Cholecystectomy with Cholangiogram(Not Applicable) - Chris Leal MD, FACS Family History (Updated 11/25/21 @ 09:10 by Daniel Grier) Father Diabetes Cardiac disorder Nephrolithiasis Mother Cardiac disorder Nephrolithiasis Other Hearing loss Hypertension No family history of adverse response to anesthesia Denies family history of Coronary heart disease Social History (Updated 11/25/21 @ 09:11 by Daniel Grier) Smoking Status: Never smoker Second Hand Exposure: No; Do You Dip or Chew Tobacco: No; Tobacco Cessation Education Requested by Patient: No Hx Alcohol Use: Yes Alcohol type: beer, wine and hard liquor Alcohol Intake Frequency Comment: 1 drink /day Hx Substance Use: No Preferred Language: Lithuanian Communication Ability: Effective Electromedical Equipment Technician Required: No Beliefs That Will Affect Care: None marital status: Current Living Situation: Spouse current occupational status: retired 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 [employer] How many Children do You have: 4 Other Information That Helps Us Care for You: No Feels Safe at Home: Yes Assistive Devices: None Review of Systems Review of Systems: gen - no fevers or recent chills; appetite had been nl pre- op, and no recent weight loss eyes - no visual changes HENT - chronic post-nasal drip; no dysphagia neck - posterior neck pain CV - see HPI; no palpitations; no orthopnea pulm - no cough, no dyspnea, no pleuritic pain, no GAFFNEY GI - RUQ pain, but no nausea/emesis; no flatus yet - no dysuria musculo - right shoulder pain post-op (see HPI) skin - no rash endo - no diabetes neuro - chronic numbness both hands Physical Exam Physical Exam: gen - pleasant, NAD eyes - PERRL, lens implants b/l HENT/mouth - MMM, no lesions; nose clear neck - no JVD, no masses, minimal tenderness over posterior right paraspinal region heart - RRR, s1 s2, no murmur lungs - decreased BS bases with some fine crackle, no wheeze, no increased work of breathing abd - distended, BS+ but very low pitched, tender RUQ; drain in place from RUQ - serosanguinous (no bile); dressings intact abdominal wall chest - no reproducible chest wall tenderness; no crepitus ext - no edema, pulses 2+ b/l neuro - strength 5/5 x 4 exts skin - no rash psych - a/o x 3 Results & Data ([facility]) Vital Signs (Past 12 Hours) Vital Signs Temp Pulse Resp BP Pulse Ox O2 Del Method O2 Flow Rate 11/25/21 07:08 36.9 C 62 17 160/87 H 94 Nasal Cannula 2.5 11/25/21 03:12 36.8 C 58 L 18 156/80 H 95 Nasal Cannula Laboratory Results Laboratory Results - last 24 hr 11/25/21 11/25/21 05:55 05:55 WBC 13.30 H RBC 4.26 L Hgb 12.7 L Hct 39.4 L MCV 92.5 MCH 29.8 MCHC 32.2 RDW Std Deviation 45.9 RDW Coeff of Giana 13.4 Plt Count 226 MPV 10.0 Immature Gran % (Auto) 0.4 Neut % (Auto) 81.4 Lymph % (Auto) 9.6 [place] % (Auto) 8.4 Eos % (Auto) 0.1 Baso % (Auto) 0.1 Neut # (Auto) 10.83 H Lymph # (Auto) 1.28 [place] # (Auto) 1.12 H Eos # (Auto) 0.01 Baso # (Auto) 0.01 Immature Gran # (Auto) 0.05 H Sodium 134 L Potassium 4.9 Chloride 102 Carbon Dioxide 25 Anion Gap 7 BUN 25 H Creatinine 1.36 Est Cr Clr Drug Dosing 38.0 Est GFR ( Amer) 53.1 Est GFR (Non-Af Amer) 45.8 BUN/Creatinine Ratio 18.4 Glucose 126 H Calcium 8.9 Total Bilirubin 1.0 Direct Bilirubin 0.2 AST 45 H ALT 53 H Alkaline Phosphatase 87 Total Protein 6.4 Albumin 3.6 Diagnostic Findings EKG - my reading - NSR, NS ST changes III/AVF, V5/V6 -- unchanged from EKG done earlier this month PG Care Time/CCT Total # of Minutes Spent Total Time Spent with Patient: Total time spent is greater than 50% in coordination of care (as documented) at patient's floor/unit and/or counseling patient: Coding Level of Care Code 04524 Subseq Obs Care Lvl 3 Diagnoses Right-sided chest pain R07.9 Right shoulder pain M25.511 Chronic cholecystitis K81.1 Hypoxia R09.02 BPH without obstruction/lower urinary tract symptoms N40.0 Hypertension I10 Hyperlipidemia E78.5 Transaminitis R74.01
[2021-11-25] MEDS ORDERED: ACETAMINOPHEN 325 MG TAB PO PRN (10:20)
[2021-11-25] MEDS ORDERED: IBUPROFEN 200 MG TAB PO PRN (10:31)
[2021-11-25] MEDS ORDERED: OPTIRAY 320 125ml IV ONE (11:27)
--- NOTE | 2021-11-25 11:47 | CT Scan Report ---
CT ANGIOGRAM OF THE CHEST CLINICAL HISTORY: Atypical chest pain. Hypoxia. COMPARISON STUDY: Chest x-ray dated 11/14/2021. TECHNIQUE: Following the IV administration of 120 cc of Optiray 320, CT angiogram of the chest was pe rformed from the upper abdomen to the thoracic inlet utilizing the pulmonary embolus protocol. Images are reviewed in the axial, sagittal, and coronal planes. 3-D MIPS images are created and assessed. I V contrast was administered without complication. A dose lowering technique was utilized adhering to the principles of ALARA. CT DOSE: 638.97 mGy.cm FINDINGS: Thyroid: Normal in size and heterogeneous in attenuation. Thoracic aorta: There is mild atherosclerotic calcification of the thoracic aorta, which is normal in caliber and demonstrates standard 3-vessel arch anatomy. No dissection is seen. Pulmonary vasculature: The pulmonary trunk is dilated, measuring 3.6 cm diameter. This indicates pulm onary artery hypertension. There are no filling defects identified in main, lobar, or segmental pulmo nary branches to suggest pulmonary embolus. Heart: The heart is enlarged and without pericardial effusion. The coronary arteries are densely calc ified. Lungs and pleural spaces: There is mild emphysema. There are trace pleural effusions with dependent s egmental atelectasis seen in both lungs, right greater than left. There is no airspace consolidation typical for pneumonia. Minimal secretions are noted in the trachea. Mediastinum: There is no mediastinal lymphadenopathy. Minerva: Clear. Axillae: There is no axillary lymphadenopathy. Upper abdomen: A surgical drain is noted in the right upper quadrant. The gallbladder surgically abse nt. Tiny foci of intraperitoneal free air are seen below the right hemidiaphragm. There is a small vo lume of perihepatic ascites. A small hiatal hernia is noted. Skeletal structures: The skeletal structures are osteopenic. No lytic or blastic bony lesions are see n. Degenerative change is noted in the shoulders and spine. IMPRESSION: 1 There is no evidence of pulmonary embolus in the main, lobar, or segmental pulmonary arteries. 2. Cardiomegaly and mild emphysema. 3. Trace pleural effusions and bibasilar atelectasis. 4. A surgical drain is noted in the right upper quadrant. Tiny foci of intraperitoneal free air below the diaphragm nonspecific and may be related to recent surgery/the presence of a drain. 5. Small volume perihepatic ascites. 6. Additional findings as above. ACT 112: Negative or not required by law. Electronically signed by: Ady Sahu M.D. 11/25/2021 11:45 AM
--- NOTE | 2021-11-25 13:43 | Electrocardiogram Report ---
Test Reason : Blood Pressure : / mmHG Vent. 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 lead placement vs. LVH Abnormal ECG When compared with ECG of 14-NOV-2021 02:07, Incomplete right bundle branch block is now Present Confirmed by Dean Coyle ([id number]) on 11/25/2021 1:43:23 PM Referred By: Chris Leal Confirmed By:Dean Coyle
[2021-11-25] MEDS ORDERED: MELATONIN 3 MG TAB PO SCH (21:00)
[2021-11-25] MEDS: TAMSULOSIN HCL 0.4 MG CAP PO SCH (21:21)
[2021-11-25] MEDS: FINASTERIDE 5 MG TAB PO SCH (21:22)
[2021-11-25] MEDS ORDERED: MAGNESIUM HYDROXIDE SUSP 30 ML UDC PO PRN (22:25)
[2021-11-26] MEDS: oxyCODONE/ACETAMINOPHEN 5mg/325mg TAB PO PRN ×4 (02:38→15:32)
--- NOTE | 2021-11-26 05:48 | Surgery Progress Note ---
Date of Service November 26, 2021 Assessment & Plan (1) Chronic cholecystitis: Plan: Status post laparoscopic cholecystectomy on 11/24/2021 (postop day #2) Continue analgesics Continue antiemetics Continue antibiotics in the form of Augmentin Encourage use of incentive spirometry Increase mobilization Wean oxygen off Consider adding Lovenox for DVT prevention Admission and Anticipated Discharge Date Admission Date: November 24, 2021 Supervising Physician Co-Signing Physician Notes Second postoperative day status post laparoscopic cholecystectomy intraoperative cholangiogram The patient this morning feels a lot better than yesterday although he still needs some oxygen to maintain his saturation No abdominal complaints the discomfort he had yesterday chest and back and shoulder he denies that today Patient can be discharged once okay with the medical service instructed see the patient in our office on Sunday We will leave the Jagjit drain in and remove it then We will send him home on antibiotics All question answered Subjective Patient is resting comfortably in bed. He notes a good night last night. He denies any chest pain. He does note minimal pain in the right upper quadrant near his surgical incisions. He denies any nausea or vomiting. He notes he tolerated solid food last evening. Without difficulty. Physical Exam Gastrointestinal (Abdomen): Abdomen is soft, with minimal distention. Surgical incisions are covered with dressing. Patient has appropriate tenderness over surgical incisions. DOTTIE drain is in place draining serosang uineous fluid and has drained approximately 160 cc over the past 24 hours. Results & Data ([facility]) Vital Signs (Past 12 Hours) Vital Signs Temp Pulse Resp BP Pulse Ox O2 Del Method O2 Flow Rate 11/25/21 21:15 Nasal Cannula 2 11/25/21 22:46 125/70 11/25/21 21:19 37 C 71 16 156/80 H 92 Nasal Cannula 2 PG Care Time/CCT Total # of Minutes Spent Total Time Spent with Patient: Total time spent is greater than 50% in coordination of care (as documented) at patient's floor/unit and/or counseling patient: Coding Level of Care Code None Diagnoses Chronic cholecystitis K81.1
[2021-11-26 06:29] LABS: Basophils # (auto) 0.02 K/uL (0-0.2); Basophils % (auto) 0.2 %; Eosinophils # (auto) 0.16 K/uL (0-0.50); Eosinophils % (auto) 1.8 %; Hematocrit (blood only) 36.8 % (40.1-51.0); Hemoglobin 11.8 g/dl (14.0-18.0); Immature Granulocytes # (auto) 0.03 K/uL (0.00-0.02); Immature Granulocytes % (auto) 0.3 %; Lymphocytes # (auto) 1.29 K/uL (1.2-3.4); Lymphocytes % (auto) 14.5 %; Mean Corpuscular Hemoglobin 29.6 pg (25.0-34.0); Mean Corpuscular Hgb Conc 32.1 g/dL (32.0-36.0); Mean Corpuscular Volume 92.2 fL (80.0-100.0); Mean Platelet Volume 10.5 fL (9.4-12.4); Monocytes # (auto) 0.92 K/uL (0.24-0.82); Monocytes % (auto) 10.3 %; Neutrophils # (auto) 6.47 K/uL (1.4-6.5); Neutrophils % (auto) 72.9 %; Platelet Count 189 K/uL (130-400); RDW Coefficient of Variation 13.5 % (11.5-14.5); RDW Standard Deviation 46.2 fL (36.4-46.3); Red Blood Count 3.99 M/uL (4.63-6.08); White Blood Count 8.89 K/ul (4.8-10.8)
[2021-11-26 06:57] LABS: Albumin Level 3.3 gm/dl (3.4-5.0); BUN Creatinine Ratio 14.6 (10-20); Bilirubin Direct 0.2 mg/dl (0-0.2); Bilirubin,Total 0.9 mg/dl (0.2-1.0); Calcium 8.7 mg/dl (8.5-10.1); Creatinine Clr Calc Pharmacy 39.8 ml/min; Est GFR (African American) 56.1 ml/min; Est GFR (Non-African American) 48.4 ml/min; Magnesium 1.7 mg/dl (1.7-2.4); Potassium 4.6 mmol/L (3.5-5.1)
[2021-11-26] MEDS: AMOXICILLIN/CLAVULANATE 875 MG TAB PO SCH (08:33)
[2021-11-26] MEDS: PROPRANOLOL HCL 20 MG TAB PO SCH (08:33)
[2021-11-26] MEDS: PANTOprazole 40 MG TAB PO SCH (08:33)
[2021-11-26] MEDS: SODIUM CHLORIDE 0.65% NA SOLN 45 ML (OCEAN) NAE SCH (08:35)
--- NOTE | 2021-11-26 10:02 | XRay Report ---
TWO VIEW CHEST CLINICAL HISTORY: Hypoxia. FINDINGS: PA and lateral chest radiographs are compared to study dated 11/14/2021 and correlated with chest CT dated 11/25/2021. The heart is enlarged noting atherosclerotic calcification of the thoracic aorta. The pulmonary vasculature is noncongested. Mild emphysema and chronic interstitial thickening is similar to previous. There is elevation of the right hemidiaphragm. There are likely trace pleural effusions with dependent atelectasis. There is no pneumothorax. The skeletal structures are osteopen ic. The bony thorax appears intact. A surgical drain is noted in the upper abdomen. Cholecystectomy c lips are noted. IMPRESSION: 1. Cardiomegaly and mild emphysema. 2. Suspect trace pleural effusions. ACT 112: Negative or not required by law. Electronically signed by: Ady Sahu M.D. 11/26/2021 10:00 AM
--- NOTE | 2021-11-26 11:59 | Hospitalist Progress Note ---
Date of Service November 26, 2021 Assessment & Plan (1) Right-sided chest pain: Plan: Resolved. Was likely referred pain from diaphragmatic irritation from insufflated air from his lap daphnie. CTA chest without PE or other abnormalities to account for pain. Cardiac enyzmes neg x 2. (2) Right shoulder pain: Plan: Was likely diaphragmatic irritation from insufflation during his gall bladder surgery; CTA chest negative. Shoulder pain resolved. (3) Chronic cholecystitis: Plan: s/p lap daphnie by Dr Leal. Defer management to Dr Leal. (4) Hypoxia: Plan: Post-op pulmonary insufficiency. Resolved. He is off [place] o2. Likely 2nd to atelectasis. Nothing else pathologic seen on CTA chest (some emphysematous changes only). We walked Mr Claire multiple times in the hallway and encouraged incentive mary jo/flutter. Last few walks in hallway -- O2 sats >90% in RA. Continue incentive spirometry, flutter valve upon return home. RE: emphysematous changes on CT - advise pulmonary referral with PFTs post- discharge. (5) BPH without obstruction/lower urinary tract symptoms: Plan: Continue flomax and finasteride. No LUTS at this time. (6) Hypertension: Plan: Continue inderal. (7) Hyperlipidemia: Plan: Ok to resume statin. (8) Transaminitis: Plan: resolved likely was 2nd to hepatic irritation in the setting of his surgery. ast/alt today wnl Plan From medical standpoint can d/c home. Advised routine pulmonary consult as outpatient for consideration of PFTs. Admission and Anticipated Discharge Date Admission Date: November 24, 2021 Subjective patient states he overall had a good night still with RUQ abd pain but no worse than yesterday no nausea/emesis passing flatus but no stool yet denies any dyspnea, cough or GAFFNEY patient reports no personal h/o smoking, but smoked heavily over the years Review of Systems Review of Systems: gen - no fevers, eating well cv - no orthopnea, no chest pain - voiding ok Physical Exam Physical Exam: gen - NAD, looks good neck - no JVD mouth - MMM heart - RRR, s1 s2 lungs - mildly decreased BS bases, no wheezes, scant rales bases, no increased work of breathing abd - mildly distended, BS+, incisional tenderness only, drain in place (nonbilious), dressings intact ext - no edema, pulses 2+ b/l Results & Data Results & Data ([facility]) Vital Signs (Past 12 Hours) Vital Signs Temp Pulse Resp BP Pulse Ox O2 Del Method O2 Flow Rate 11/26/21 08:10 87 L Room Air 11/26/21 07:24 Nasal Cannula 2 11/26/21 07:10 36.7 C 61 16 164/93 H 94 Room Air 2 Laboratory Results Laboratory Results - last 24 hr 11/25/21 11/26/21 11/26/21 13:06 05:49 05:49 WBC 8.89 RBC 3.99 L Hgb 11.8 L Hct 36.8 L MCV 92.2 MCH 29.6 MCHC 32.1 RDW Std Deviation 46.2 RDW Coeff of Giana 13.5 Plt Count 189 MPV 10.5 Immature Gran % (Auto) 0.3 Neut % (Auto) 72.9 Lymph % (Auto) 14.5 [place] % (Auto) 10.3 Eos % (Auto) 1.8 Baso % (Auto) 0.2 Neut # (Auto) 6.47 Lymph # (Auto) 1.29 [place] # (Auto) 0.92 H Eos # (Auto) 0.16 Baso # (Auto) 0.02 Immature Gran # (Auto) 0.03 H Sodium 135 L Potassium 4.6 Chloride 102 Carbon Dioxide 28 Anion Gap 5 BUN 19 Creatinine 1.30 Est Cr Clr Drug Dosing 39.8 Est GFR ( Amer) 56.1 Est GFR (Non-Af Amer) 48.4 BUN/Creatinine Ratio 14.6 Glucose 101 H Calcium 8.7 Magnesium 1.7 Total Bilirubin 0.9 Direct Bilirubin 0.2 AST 25 ALT 37 Alkaline Phosphatase 85 Troponin I High Sens 8.5 Total Protein 6.0 Albumin 3.3 L PG Care Time/CCT Total # of Minutes Spent Total Time Spent with Patient: Total time spent is greater than 50% in coordination of care (as documented) at patient's floor/unit and/or counseling patient: Coding Level of Care Code 67687 Subseq Obs Care Lvl 2 Diagnoses Right-sided chest pain R07.9 Right shoulder pain M25.511 Chronic cholecystitis K81.1 Hypoxia R09.02 BPH without obstruction/lower urinary tract symptoms N40.0 Hypertension I10 Hyperlipidemia E78.5 Transaminitis R74.01
== END 2021-11-26 16:22 | disposition home or self-care (01) ==
LOC: 3E 07:24 → ASU 07:24